=== PATIENT | male | born 1990 | race Caucasian/White ===

== ENCOUNTER 2023-05-27 14:23 | Emergency (ER) | payer OTHER, SELFPAY ==
--- NOTE | ~2023-05-27 | CT_ITS ---
EXAMINATION: CT abdomen pelvis wo con DATE: 05/27/2023 15:40 INDICATION: L flank and abd pain TECHNIQUE: Computed tomography (CT) of the abdomen and pelvis was performed without intravenous contr ast. Automated exposure control and iterative reconstruction technique were employed. The dose-length product was 742.73 mGy-cm. COMPARISON: None. FINDINGS: Lower thorax: Mild bilateral symmetric gynecomastia. Liver: Normal. Biliary/Gallbladder: Gallbladder is normal. No bile duct dilation. Pancreas: No mass or duct dilation. Spleen: Normal. Adrenals:No mass. Kidneys: No suspicious mass or obstructing proximal stone. Mild left hydronephrosis. GI tract: No small or large bowel dilation. Normal appendix. Mesentery/Peritoneum: No ascites, mass, or free air. Retroperitoneum: No mass. Pelvis: 3 mm calcification in the distal aspect of the left UVJ. Pelvic organs are otherwise within n ormal limits. Soft Tissues: Soft tissues and body wall unremarkable. Bones: No acute osseous finding. IMPRESSION: 3 mm left UVJ stone causing mild obstructive uropathy. Reviewed, dictated and finalized at location K.
[2023-05-27 14:39] VITALS: BP 168/101; PULSE 70; RESP 16; TEMP 36.4; O2SAT 100
[2023-05-27] MEDS: ONDANSETRON INJ 4 MG/2 ML VIAL IV PUSH (15:27)
[2023-05-27] MEDS: SODIUM CHLORIDE 0.9% IV 1,000 ML 999 ML IV CONT (15:27)
[2023-05-27] MEDS: MORPHINE SULFATE (*CRX) 4 MG/ML INJ IV PUSH (15:27)
[2023-05-27 15:34] LABS: Basophils Absolute Auto 0.1 K/mm3 (0.0-0.1); Basophils Percent Auto 0.5 % (0.2-1.2); Eosinophils Absolute Auto 0.1 K/mm3 (0-0.3); Eosinophils Percent Auto 0.9 % (0-4.4); Hematocrit 46.2 % (42.0-52.0); Hemoglobin 15.6 g/dL (14.0-18.0); Immature Granulocyte Absolute 0.07 K/mm3 (0.00-0.031); Immature Granulocyte Percent A 0.7 % (0-0.5); Lymphocytes Percent Auto 25.1 % (18.3-44.2); Mean Corpuscular HGB Conc 33.8 g/dl (32-36); Mean Corpuscular Volume 88.8 fl (80-100); Mean Platelet Volume 10.1 fl (7.4-10.4); Monocytes Absolute Auto 0.5 K/mm3 (0.1-0.6); Monocytes Percent Auto 4.8 % (2.6-8.5); Neutrophils Absolute Auto 6.8 K/mm3 (1.3-6.7); Platelet Count Result 240 k/mm3 (150-375); Red Cell Distribution Width 12.3 % (11.5-14.5)
[2023-05-27 15:38] LABS: Alanine Aminotransferase 67 U/L (6-50); Albumin Level 4.6 g/dL (3.5-5.1); Alkaline Phosphatase 65 U/L (38-126); Anion Gap 7 mmol/L (8-16); Aspartate Amino Transferase 34 U/L (17-59); Bilirubin,Total 1.2 mg/dL (0.2-1.3); Blood Urea Nitrogen 19 mg/dL (9-20); Calcium 9.5 mg/dL (8.4-10.2); Carbon Dioxide 29 mmol/L (22-30); Chloride 105 mmol/L (98-107); Estimated CRCL calculation 108 ml/min; Estimated Glomerular Filt Rate > 60; Glucose 124 mg/dL (65-110); Lipase 69 U/L (23-300); Potassium 3.6 mmol/L (3.4-5.0); Sodium 141 mmol/L (137-145)
[2023-05-27 15:39] LABS: Lactic Acid Reflex 1.8 mmol/L (0.7-2.0)
--- NOTE | 2023-05-27 16:21 | ED.BACK ---
HPI - Back Pain/Injury General Chief Complaint: Back Pain/Injury Stated Complaint: flank pain Time Seen by Provider: 05/27/23 15:01 History of Present Illness HPI Narrative: 32-year-old male presents to the emergency department for left flank pain radiating to his left lower abdomen that began 1 hour prior to arrival. Patient states the pain is constant and feels like someone is stabbing him in the flank. Reports associated nausea and vomiting. Denies dysuria, hematuria, fever, diarrhea. Denies history of kidney stones. Related Data Allergies Allergy/AdvReac Type Severity Reaction Status Date / Time No Known Allergies Allergy Verified 05/27/23 15:32 Review of Systems Review of Systems: CONSTITUTIONAL: Denies fever, chills, or sweats. EYES: Denies visual changes, redness, or discharge. ENT: Denies rhinorrhea, congestion, sore throat, or otalgia. CARDIOVASCULAR: Denies chest pain, palpitations, or edema. RESPIRATORY: Denies cough or dyspnea. GASTROINTESTINAL: See HPI GENITOURINARY: Denies dysuria or hematuria. SKIN: Denies rash or itching. MUSCULOSKELETAL: Denies back pain, joint pain, or myalgia. NEUROLOGIC: Denies headache, numbness, or weakness. PSYCHIATRIC: Denies anxiety or depression. PMFSH Social History Social History Smoking status: Current every day smoker Exam Narrative: GENERAL: Well-appearing, well-nourished, and in no acute distress. HEAD: Normocephalic, atraumatic. NECK: Supple. CHEST: Clear to auscultation. No respiratory distress. HEART: Regular rate and rhythm. No murmur heard. Normal peripheral pulses. ABDOMEN: mild tenderness to the left lower quadrant without rebound, guarding or rigidity. left CVA tenderness. EXTREMITIES: Normal range of motion. No edema. SKIN: Warm, dry, no rash. NEURO: No focal deficits. Alert and oriented x3 Course Vital Signs Vital signs: Vital Signs Temperature 97.6 F 05/27/23 14:39 Pulse Rate 70 05/27/23 14:39 Respiratory Rate 16 05/27/23 14:39 Blood Pressure 168/101 H 05/27/23 14:39 Pulse Oximetry 100 05/27/23 14:39 Temperature 97.6 F 05/27/23 14:39 Pulse Rate 70 05/27/23 14:39 Respiratory Rate 16 05/27/23 14:39 Blood Pressure 168/101 H 05/27/23 14:39 Pulse Oximetry 100 05/27/23 14:39 MDM - Back Pain/Injury MDM Narrative Medical decision making narrative: 32-year-old male presents to emergency department for acute onset left flank pain and left lower quadrant abdominal pain that started 1 hour prior to arrival. Vital significant for blood pressure 168/101, otherwise unremarkable. He is afebrile and nontoxic appearing. Exam significant for the above. CBC is without leukocytosis. Chemistries largely unremarkable. Lipase normal. Lactic acid normal 1.8. CT abdomen pelvis reveals a 3 mm left UVJ stone causing mild obstructive uropathy. UA with hematuria, no infection. Labs and imaging discussed with the patient. He received IV fluids, Zofran, morphine and Dilaudid. offered discussed admission versus outpatient management. Patient requesting to be discharged. I encouraged ibuprofen for pain, Gridley for breakthrough pain. Gridley , Flomax and Zofran sent to pharmacy. urology follow-up provided. Strict ED return precautions discussed. He is agreeable to plan verbalized understanding. Discharged in stable condition. Lab Data 05/27/23 15:23 05/27/23 15:23 Labs: Lab Results 05/27/23 05/27/23 05/27/23 Range/Units 15:22 15:23 16:19 WBC 10.0 (4.5-10.0) K/mm3 RBC 5.20 (4.6-6.20) M/mm3 Hgb 15.6 (14.0-18.0) g/dL Hct 46.2 (42.0-52.0) % MCV 88.8 (80-100) fl MCH 30.0 (26-34) pg MCHC 33.8 (32-36) g/dl RDW 12.3 (11.5-14.5) % Plt Count 240 (150-375) k/mm3 MPV 10.1 (7.4-10.4) fl Immature Gran % (Auto) 0.7 H (0-0.5) % Neut % (Auto) 68.0 (45.5-73.1) % Lymp
[2023-05-27] MEDS: HYDROmorphone HCL INJ (*CRX) 1 MG/ML SYR IV PUSH (16:25)
[2023-05-27 16:39] LABS: Bacteria Urine None Seen /hpf; Non Pathogenic Casts 0-2; RBC Urine 21-50 /hpf (0-2); Squamous Epithelial Cell Urine None Seen /hpf (Few); WBC Urine 0-5 /hpf (0-3)
[2023-05-27 16:42] LABS: Add Urine Microscopic? YES; Appearance Urine Clear (Clear); Color Urine Yellow (Yellow)
[2023-05-27 16:43] LABS: Bilirubin Urine Negative (Negative); Blood Urine 3+ (Negative); Glucose Urine UA Negative (Negative); Ketones Urine Trace mg/dL (Negative); Leukocyte Esterase Ur Negative LEU/UL (Negative); Nitrate Urine Negative (Negative); Protein Urine 1+ mg/dL (Negative); Specific Grav Ur >= 1.030 (1.001-1.035); Urobilinogen Urine 0.2 mg/dL (<2.0); pH Urine 5.5 (5.0-9.0)
[2023-05-27] MEDS: KETOROLAC 30 MG/ML VIAL (*BKC) IV PUSH (18:25)
[2023-05-27 18:32] VITALS: BP 155/97; PULSE 68; RESP 18; O2SAT 100
== END 2023-05-27 19:08 | disposition home or self-care (01) ==
PROVIDERS: Emergency Provider Physician Assistant
DX: N13.9 Obstructive and reflux uropathy, unspecified (principal); N20.1 Calculus of ureter; F17.200 Nicotine dependence, unspecified, uncomplicated
CPT/HCPCS: 36415; 74176; 80053; 81001; 83605; 83690; 85025; 96361; 96374; 96375; 99284; J1170; J1885; J2270; J2405; J7030